=== PATIENT | female | born 1985 | race Hispanic/Latino ===

== ENCOUNTER 2017-11-06 13:55 | Emergency (ER) | payer SELFPAY ==
--- NOTE | 2017-11-06 15:57 | Emergency Department Report ---
ED Female HPI - General Chief complaint: Abdominal Pain Stated complaint: SANE RN/UTI Time Seen by Provider: 11/06/17 15:56 Source: patient Mode of arrival: Ambulatory Limitations: No Limitations - History of Present Illness Initial comments: This is a 32-year-old female here complaining of vaginal discharge and presently she is type 2-3 weeks. She says she was seen by [facility] in [place] on October 16 and diagnosed with BV with a yeast infection. Patient says she completed the medication but she is still having the symptoms. She reports that she did not take medication and she was told to take it. She says she was tested for gonorrhea and chlamydia and it came back negative. Denies any nausea vomiting or diarrhea. She reports some pelvic pain at 6 out of 10. She also reports urinary burning when on the frequency or urgency. Denies any back pain. Pain is achy and intermittent. No medication taken MD Complaint: vaginal discharge, dysuria, pelvic pain Onset/Timin -: week(s) Location: suprapubic Radiation: non-radiating Severity: moderate Severity scale (0 -10): 6 Quality: cramping Consistency: intermittent Improves with: none Worsens with: none Are you Now?: No Last Menstrual Period: 10/19/17 EDC: 07/26/18 Associated Symptoms: vaginal discharge, abdominal pain, dysuria. denies: vaginal bleeding, nausea/vomiting, fever/chills, headaches, loss of appetite, hematuria, rash, seizure, shortness of breath, syncope, weakness - Related Data Sexually active: Yes (patient states she is a condom) Previous Rx's Medication Instructions Recorded Last Taken Type Fluconazole [Diflucan TAB] 200 mg PO QDAY 2 Days #2 tablet 11/06/17 Unknown Rx Miconazole [Monistat Vag Suppos] 100 mg VG QHS 5 Days #5 supp.vag 11/06/17 Unknown Rx Sulfamethoxazole/Trimethoprim 1 each PO BID 5 Days #10 tablet 11/06/17 Unknown Rx [Bactrim DS TAB] Allergies Allergy/AdvReac Type Severity Reaction Status Date / Time No Known Allergies Allergy Unverified 11/06/17 14:11 ED Review of Systems ROS: Stated complaint: SANE RN/UTI Other details as noted in HPI Constitutional: denies: chills, fever Eyes: denies: eye discharge ENT: denies: throat pain Respiratory: denies: cough, shortness of breath, SOB with exertion, SOB at rest , stridor, wheezing Cardiovascular: denies: chest pain, palpitations, dyspnea on exertion, edema, syncope, paroxysmal nocturnal dyspnea Gastrointestinal: abdominal pain. denies: nausea, vomiting, diarrhea, constipation, hematemesis, melena, hematochezia Genitourinary: dysuria, discharge, other (vaginal itching). denies: urgency, frequency, hematuria, abnormal menses, dyspareunia Musculoskeletal: denies: back pain, joint swelling, arthralgia Skin: denies: rash, lesions Neurological: denies: headache ED Past Medical Hx - Past Medical History Previous Medical History?: Yes Hx Asthma: Yes - Surgical History Past Surgical History?: Yes Hx Breast Surgery: Yes Additional Surgical History: two brizillian butt lift. facial surgery - Family History Family history: hypertension - Social History Smoking Status: Current Every Day Smoker Substance Use Type: Alcohol - Medications Home Medications: Home Medications Medication Instructions Recorded Confirmed Last Taken Type Fluconazole [Diflucan TAB] 200 mg PO QDAY 2 Days #2 tablet 11/06/17 Unknown Rx Miconazole [Monistat Vag Suppos] 100 mg VG QHS 5 Days #5 supp.vag 11/06/17 Unknown Rx Sulfamethoxazole/Trimethoprim 1 each PO BID 5 Days #10 tablet 11/06/17 Unknown Rx [Bactrim DS TAB] ED Physical Exam - General Limitations: No Limitations General appearance: alert, in no apparent distress - Head Head exam: Present: atraumatic, normocephalic, normal inspection - Eye Eye exam: Present: normal appearance, PERRL, EOMI Pupils: Present: normal accommodation - ENT ENT exam: Present: normal exam, normal orophraynx, mucous membranes moist - Neck Neck exam: Present: normal inspection, full ROM. Absent: tenderness, lymphadenopathy - Respiratory Respiratory exam: Present: normal lung sounds bilaterally. Absent: respiratory distress, chest wall tenderness - Cardiovascular Cardiovascular Exam: Present: regular rate, normal rhythm, normal heart sounds. Absent: systolic murmur, diastolic murmur - GI/Abdominal GI/Abdominal exam: Present: soft, normal bowel sounds. Absent: distended, tenderness, guarding, rebound, rigid, organomegaly, mass, bruit, pulsatile mass - External exam: Present: normal external exam Speculum exam: Present: vaginal discharge, cervical discharge. Absent: normal speculum exam, erythema, vaginal bleeding, foreign body, tissue, laceration Bi-manual exam: Present: normal bi-manual exam. Absent: cervical motion tendernes, adnexal tenderness, adnexal mass, uterine enlargement, uterine tenderness - Extremities Exam Extremities exam: Present: normal inspection, full ROM, normal capillary refill , other (No cce. + 2 pulses in all extremities, no neurovascular compromise). Absent: tenderness, pedal edema, joint swelling, calf tenderness - Back Exam Back exam: Present: normal inspection, full ROM, other (plates without any difficulties). Absent: tenderness, CVA tenderness (R), CVA tenderness (L), rash noted - Neurological Exam Neurological exam: Present: alert, oriented X3, normal gait - Psychiatric Psychiatric exam: Present: normal affect, normal mood - Skin Skin exam: Present: warm, dry, intact, normal color. Absent: rash ED Course Vital Signs 11/06/17 11/06/17 14:11 19:50 Temperature 98.4 F Pulse Rate 90 88 Respiratory 18 18 Rate Blood Pressure 113/57 Blood Pressure 116/60 [Right] O2 Sat by Pulse 100 100 Oximetry - Reevaluation(s) Reevaluation #1: 11/06/17 18:49 Patient received azithromycin 1 g by mouth and Rocephin 250 mg IM in the emergency room for treatment of gonorrhea and Chlamydia empirically. GC and chlamydia tests collected and sent and showing many polymorphonuclear cells. I discussed the patient what this means and she says she had gonorrhea and chlamydia test done in [place] on 10/16/2017 and it was negative but she wants to go ahead and get treated. ED Medical Decision Making - Lab Data Lab Results 11/06/17 Range/Units 15:57 Urine Color Yellow (Yellow) Urine Turbidity Clear (Clear) Urine pH 6.0 (5.0-7.0) Ur Specific [place] 1.025 (1.003-1.030) Urine Protein <15 mg/dl (Negative) mg/dL Urine Glucose (UA) Neg (Negative) mg/dL Urine Ketones Neg (Negative) mg/dL Urine Blood Neg (Negative) Urine Nitrite Neg (Negative) Ur Reducing Substances Not Reportable Urine Bilirubin Neg (Negative) Urine Ictotest Not Reportable Urine Urobilinogen < 2.0 (<2.0) mg/dL Ur Leukocyte Esterase Sm (Negative) Urine WBC (Auto) 1.0 (0.0-6.0) /HPF Urine RBC (Auto) 2.0 (0.0-6.0) /HPF U Epithel Cells (Auto) 13.0 (0-13.0) /HPF Urine Bacteria (Auto) 2+ (Negative) /HPF Urine Mucus Few /HPF Urine HCG, Qual Negative (Negative) Urine culture sent Gonorrhea and Chlamydia sent and pending Wet prep with negative clue cells, negative chart and negative yeast. Many polymorphonuclear cells seen - Medical Decision Making This is a 32-year-old female here reporting that she was treated for bacterial vaginosis and yeast infection by her [facility] in [place] recently and symptoms has not cleared up. She says she did not take Flagyl as she was supposed to and she is having vaginal discharge she is also complaining of some urinary burning in and she says she took Diflucan on but she still having a lot of discharge. She was also complaining of some pelvic pain on and off. Patient is here for recheck. She was screened and were discussed with Dr. Tunde Parada. I examined patient and patient found to have large amounts of white clumpy discharge in her vaginal vault and on her cervix. She has no cervical motion tenderness and no adnexal tenderness. Patient with normal abdominal exam. Patient with urinalysis positive for urinary tract infection please see laboratory section for detail. Urine culture sent, she had wet prep done and negative for bacterial vaginosis, yeast and Trichomonas. Redness at this is negative Gonorrhea and chlamydia test sent and pending. I discussed the patient's her laboratory findings and patient and she did not have any bacterial vaginosis or yeast infection on the culture. Examination revealed large amount of white clumpy cottage cheese like discharge on her cervix. I discussed results with Dr. Parada and he thinks this was going ahead and treat patient for yeast infection even though wet prep came back negative. This is discussed the patient and she is in agreement. Patient also wants to be treated for gonorrhea and chlamydia empirically. She says she does not want to wait for the test that she was given medication without any adverse reaction. Patient was given information to follow up with [facility] and also held department in 7-10 days to have repeat urinalysis and STD check and also told not to have any sex until she finds out what her gonorrhea and chlamydia tests results are and she voiced understanding. Vaginal discharge in female concern for STD without confirmation-patient wanted to be treated empirically so she was treated for gonorrhea and chlamydia with 250 mg of Rocephin IM and 1 g of azithromycin by mouth and she will return to the medical records department in 3-5 days with ID to have results. Patient was instructed to go to [facility] or [facility] for have repeat testing in 7-10 days and to refrain from having sexual activity until she finds out what her test results are. Patient also will be treated with Diflucan for findings of large amount of cottage cheese looking like discharge on her cervix and in vaginal vault. Pelvic pain-resolved. Pelvic exam and bimanual exam normal except for large amount of discharge and vagina and cervix. Abdominal exam is normal Dysuria, Acute cystitis without hematuria-urinalysis positive please refer for laboratory section for detail. Patient will be treated with Bactrim DS. Discharged home in stable condition with prescription for Bactrim DS, Diflucan on and miconazole. Vital signs are stable she is afebrile and she is nontoxic in appearance. She is aware that she needs to follow-up with [facility] for repeat testing. Critical care attestation.: If time is entered above; I have spent that time in minutes in the direct care of this critically ill patient, excluding procedure time. ED Disposition Clinical Impression: Concern about STD in female without diagnosis, Yeast infection of the vagina, Acute cystitis without hematuria, Vaginal discharge, Pelvic pain, Dysuria Disposition: TO HOME OR SELFCARE Is pt being admited?: No Does the pt Need Aspirin: No Condition: Stable Instructions: Sexually Transmitted Diseases (ED), Safe Sex (ED), Urinary Tract Infection in Women (ED), Vulvovaginal Candidiasis (ED), Dysuria (ED), Abdominal Pain (ED) Additional Instructions: Please follow up with [facility] and or [facility] in 7-10 days for repeat urinalysis and for STD test Increase her fluid intake He can obtain your gonorrhea and chlamydia tests at this hospital medical records department and 3-5 days. Please spring ID with you. You were treated for gonorrhea and chlamydia in emergency room and will not need another treatment. Please refrain from having sexual activity until you find out the results of your STD testing. Take Diflucan on for yeast infection. Take one today and then one after U complete Bactrim. Also take vaginal suppository for yeast daily at bedtime If his symptoms worsen, return to the emergency room Please let your sexual partner know that you were treated for STD in emergency room due to penile discharge and they'll need to get checked. Prescriptions: Miconazole [Monistat Vag Suppos] 100 mg VG QHS 5 Days #5 supp.vag Fluconazole [Diflucan TAB] 200 mg PO QDAY 2 Days #2 tablet Sulfamethoxazole/Trimethoprim [Bactrim DS TAB] 1 each PO BID 5 Days #10 tablet Referrals: PRIMARY CAREMD [Primary Care Provider] - 3-5 Days SYLVESTER SIERRA MD [Staff Physician] - 3-5 Days [facility] [Outside] - 3-5 Days Forms: Work/School Release Form(ED)
[2017-11-06 17:37] LABS: HCG Qualitative,Urine Negative (Negative)
[2017-11-06 17:43] LABS: Bacteria,Urine 2+ /HPF (Negative); Bilirubin,Urine NEG (Negative); Blood,Urine NEG (Negative); Color,Urine Yellow (Yellow); Mucus,Urine FEW /HPF; Protein,Urine <15 mg/dL mg/dL (Negative); Urobilinogen,Urine < 2.0 mg/dL (<2.0)
[2017-11-06] MEDS ORDERED: ZITHROMAX PO ONE (18:39)
[2017-11-06] MEDS ORDERED: XYLOCAINE 1% MPF 5 mL INFILTRATI ONE (18:39)
[2017-11-06] MEDS ORDERED: ROCEPHIN IM ONE (18:39)
[2017-11-06 19:51] VITALS: BP 116/60
== END 2017-11-06 19:51 | disposition home or self-care (01) ==
LOC: ED 13:55
DX: N30.00 Acute cystitis without hematuria (principal); B37.9 Candidiasis, unspecified; R10.2 Pelvic and perineal pain; R30.0 Dysuria; J45.909 Unspecified asthma, uncomplicated; F17.200 Nicotine dependence, unspecified, uncomplicated
CPT/HCPCS: 81001; 81025; 87086; 87210; 87591; 96372; 99284; J0696

== ENCOUNTER 2017-11-30 11:37 | Emergency (ER) | payer OTHER ==
[2017-11-30 11:51] VITALS: BP 118/75
[2017-11-30 12:24] LABS: Bacteria,Urine 1+ /HPF (Negative); Bilirubin,Urine NEG (Negative); Blood,Urine MOD (Negative); Color,Urine Yellow (Yellow); Hyaline Casts,Urine 1 /LPF; Mucus,Urine FEW /HPF; Protein,Urine <15 mg/dL mg/dL (Negative); Urobilinogen,Urine < 2.0 mg/dL (<2.0)
[2017-11-30 12:26] LABS: HCG Qualitative,Urine Negative (Negative)
[2017-11-30] MEDS ORDERED: ZOFRAN ODT PO ONE (13:53)
[2017-11-30] MEDS ORDERED: FLAGYL PO ONE (13:53)
--- NOTE | 2017-11-30 13:58 | Emergency Department Report ---
ED General Adult HPI - General Chief complaint: Urogenital-Female Stated complaint: BACK/ABD PAIN Time Seen by Provider: 11/30/17 13:43 Source: patient Mode of arrival: Ambulatory Limitations: No Limitations - History of Present Illness Initial comments: Patient presents to emergency department with a chief complaint of vaginal discharge. Patient states she was here 2 weeks ago was treated for UTI and chlamydia. Patient is concerned as she has Trichomonas and request to be treated for that. Patient denies abdominal pain. -: Gradual Location: pelvis, genitals Radiation: non-radiation Severity scale (0 -10): 3 Improves with: none Worsens with: none Associated Symptoms: denies other symptoms Treatments Prior to Arrival: none - Related Data Previous Rx's Medication Instructions Recorded Last Taken Type Fluconazole [Diflucan TAB] 200 mg PO QDAY 2 Days #2 tablet 11/06/17 Unknown Rx Miconazole [Monistat Vag Suppos] 100 mg VG QHS 5 Days #5 supp.vag 11/06/17 Unknown Rx Sulfamethoxazole/Trimethoprim 1 each PO BID 5 Days #10 tablet 11/06/17 Unknown Rx [Bactrim DS TAB] Fluconazole [Diflucan TAB] 200 mg PO QDAY #2 tablet 11/30/17 Unknown Rx Sulfamethoxazole/Trimethoprim 1 each PO BID #14 tablet 11/30/17 Unknown Rx [Bactrim DS TAB] Allergies Allergy/AdvReac Type Severity Reaction Status Date / Time No Known Allergies Allergy Unverified 11/06/17 14:11 ED Review of Systems ROS: Stated complaint: BACK/ABD PAIN Other details as noted in HPI Constitutional: denies: chills, fever Eyes: denies: eye pain, eye discharge, vision change ENT: denies: ear pain, throat pain Respiratory: denies: cough, shortness of breath, wheezing Cardiovascular: denies: chest pain, palpitations Endocrine: no symptoms reported Gastrointestinal: denies: abdominal pain, nausea, diarrhea Genitourinary: dysuria, discharge. denies: urgency Musculoskeletal: denies: back pain, joint swelling, arthralgia Skin: denies: rash, lesions Neurological: denies: headache, weakness, paresthesias Psychiatric: denies: anxiety, depression Hematological/Lymphatic: denies: easy bleeding, easy bruising ED Past Medical Hx - Past Medical History Hx Asthma: Yes - Surgical History Hx Breast Surgery: Yes Additional Surgical History: two brizillian butt lift. facial surgery - Social History Smoking Status: Current Some Day Smoker Substance Use Type: Alcohol - Medications Home Medications: Home Medications Medication Instructions Recorded Confirmed Last Taken Type Fluconazole [Diflucan TAB] 200 mg PO QDAY 2 Days #2 tablet 11/06/17 Unknown Rx Miconazole [Monistat Vag Suppos] 100 mg VG QHS 5 Days #5 supp.vag 11/06/17 Unknown Rx Sulfamethoxazole/Trimethoprim 1 each PO BID 5 Days #10 tablet 11/06/17 Unknown Rx [Bactrim DS TAB] Fluconazole [Diflucan TAB] 200 mg PO QDAY #2 tablet 11/30/17 Unknown Rx Sulfamethoxazole/Trimethoprim 1 each PO BID #14 tablet 11/30/17 Unknown Rx [Bactrim DS TAB] ED Physical Exam - General Limitations: No Limitations General appearance: alert, in no apparent distress - Head Head exam: Present: atraumatic, normocephalic - Eye Eye exam: Present: normal appearance - ENT ENT exam: Present: mucous membranes moist - Neck Neck exam: Present: normal inspection - Respiratory Respiratory exam: Present: normal lung sounds bilaterally. Absent: respiratory distress - Cardiovascular Cardiovascular Exam: Present: regular rate, normal rhythm. Absent: systolic murmur, diastolic murmur, rubs, gallop - GI/Abdominal GI/Abdominal exam: Present: soft, normal bowel sounds - External exam: Present: other (deferred) Speculum exam: Present: other (deferred) Bi-manual exam: Present: other (deferred) - Extremities Exam Extremities exam: Present: normal inspection - Back Exam Back exam: Present: normal inspection - Neurological Exam Neurological exam: Present: alert, oriented X3 - Psychiatric Psychiatric exam: Present: normal affect, normal mood - Skin Skin exam: Present: warm, dry, intact, normal color. Absent: rash ED Course Vital Signs 11/30/17 11:47 Temperature 98.5 F Pulse Rate 74 Respiratory 18 Rate Blood Pressure 118/75 O2 Sat by Pulse 100 Oximetry ED Medical Decision Making - Medical Decision Making Patient requested to be treated for Trichomonas and continuation of her UTI treatment at home. Critical care attestation.: If time is entered above; I have spent that time in minutes in the direct care of this critically ill patient, excluding procedure time. ED Disposition Clinical Impression: Vaginal irritation, Dysuria Disposition: DC-01 TO HOME OR SELFCARE Is pt being admited?: No Does the pt Need Aspirin: No Condition: Stable Instructions: Trichomoniasis (ED), Dysuria (ED) Additional Instructions: return if worse Prescriptions: Fluconazole [Diflucan TAB] 200 mg PO QDAY #2 tablet Sulfamethoxazole/Trimethoprim [Bactrim DS TAB] 1 each PO BID #14 tablet Referrals: PRIMARY CARE, [Primary Care Provider] - 3-5 Days [facility] [Outside] - 3-5 Days Time of Disposition: 13:57
== END 2017-11-30 14:19 | disposition home or self-care (01) ==
LOC: ED 11:37
DX: N89.8 Other specified noninflammatory disorders of vagina (principal); R30.0 Dysuria; J45.909 Unspecified asthma, uncomplicated; F17.200 Nicotine dependence, unspecified, uncomplicated
CPT/HCPCS: 81001; 81025; 99283; Q0162